=== PATIENT | female | born 1955 | race Caucasian/White ===

== ENCOUNTER 2016-10-30 18:14 | Inpatient (IN) | payer OTHER ==
[~2016-10-30] VITALS: Ht 170.2 cm; Wt 78.0 kg
[~2016-10-30 18:14] MED LIST: AMIT25TA PO; CARV6.252 PO; DIAZ5TAB PO; DILT240C9 PO; ESOM40CA PO; ESTR1PAT13 TP; EZET10TA3 PO; HYDR-3138 PO; LEVO150T5 PO; LOVA20TA2 PO; METF500T27 PO; OXYC5CAP4 PO; PENT100C2 PO; ROSU20TA PO; SERT50TA5 PO; TRAM50TA2 PO; [UNRECOGNIZED DRUG - OTHER] PO
[2016-10-30] MEDS ORDERED: HYDROmorphone 1 MG/ML, 1ML IVPush PRN (19:00)
[2016-10-30] MEDS ORDERED: ONDANSETRON 2MG/ML, 2ML IVPush ONE (19:00)
[2016-10-30] MEDS ORDERED: SODIUM CHLORIDE FLUSH 10ML SYR IVF ONE (19:00)
[2016-10-30] MEDS ORDERED: SODIUM CHLORIDE 0.9% 1,000ML IVBOLUS ONE (19:00)
[2016-10-30 19:06] LABS: BLOOD UREA NITROGEN 11 mg/dL (7-18)
[2016-10-30] MEDS ORDERED: GADOBUTROL 7.5 MMOL/7.5 ML PFS ONE (19:19)
[2016-10-30 19:38] LABS: DIFF TOTAL CELLS COUNTED 100 CELL DIFF
[2016-10-30 19:40] LABS: VERIFY COUNTS? YES
[2016-10-30] MEDS ORDERED: ONDANSETRON 2MG/ML, 2ML ONE (20:11)
[2016-10-30] MEDS ORDERED: HYDROmorphone 1 MG/ML, 1ML ONE (20:11)
[2016-10-30] MEDS ORDERED: CEFTRIAXONE 1,000 MG IV ONE (21:30)
[2016-10-30] MEDS ORDERED: CEFTRIAXONE PMX 1GM/50ML 50 ML ONE (21:44)
[2016-10-30] MEDS ORDERED: NS + 20MEQ KCL 1,000 ML IV SCH (22:11)
[2016-10-30] MEDS ORDERED: VANCOMYCIN PER PHARMACY MC PRN (22:30)
[2016-10-30] MEDS ORDERED: ACETAMINOPHEN 325 MG TABLET PO PRN (22:30)
[2016-10-30] MEDS ORDERED: ESTRADIOL 0.1 MG TP SCH (22:30)
[2016-10-30] MEDS ORDERED: DOCUSATE 100 MG CAPSULE PO PRN (22:30)
[2016-10-30] MEDS ORDERED: POLYETHYLENE GLYCOL 17 GM PACKET PO PRN (22:30)
[2016-10-30] MEDS ORDERED: ONDANSETRON 2MG/ML, 2ML IVPush PRN (22:30)
[2016-10-30] MEDS ORDERED: HYDROmorphone 2 MG/ML, 1ML IVPush PRN (22:30)
[2016-10-30] MEDS ORDERED: PHARMACOKINETIC CONSULTATION MC ONE (23:30)
[2016-10-30] MEDS ORDERED: PHARMACOKINETIC MONITORING MC PRN (23:30)
[2016-10-30] MEDS ORDERED: OMNIPAQUE 350 MG/ML, 100ML BOTTLE ONE (23:30)
[2016-10-30] MEDS: CARVEDILOL 6.25 MG TABLET PO SCH (23:31)
[2016-10-30] MEDS: ENOXAPARIN 40 MG/0.4 ML SQ SCH (23:31)
[2016-10-30] MEDS: OXYcodone IR 5MG TABLET PO PRN (23:31)
[2016-10-30] MEDS: AMITRIPTYLINE 25 MG TABLET PO SCH (23:31)
[2016-10-30 23:39] VITALS: BP 109/70
[2016-10-30] MEDS: MEROPENEM 1 GM in SODIUM CHLORIDE 0.9% 50 ML IV SCH (23:48)
[2016-10-31] MEDS ORDERED: GLUCAGON 1 MG IM PRN
[2016-10-31] MEDS ORDERED: DEXTROSE 4 GM TAB.CHEW PO PRN
[2016-10-31] MEDS ORDERED: DEXTROSE 50%, 50ML SYRINGE IVPush PRN
[2016-10-31 01:14] VITALS: BP 101/59
[2016-10-31] MEDS: VANCOMYCIN 1,500 MG in SODIUM CHLORIDE 0.9% 250 ML IV SCH ×2 (01:15→19:35)
[2016-10-31] MEDS: ZOLPIDEM 5MG TABLET PO PRN ×2 (01:27→21:36)
[2016-10-31] MEDS: OXYcodone IR 5MG TABLET PO PRN ×6 (03:29→23:38)
[2016-10-31] MEDS ORDERED: DIPHENHYDRAMINE 50 MG/ML, 1ML ONE (03:51)
[2016-10-31] MEDS ORDERED: FLUCONAZOLE 100 MG TABLET PO ONE ×2 (04:00→08:00)
[2016-10-31] MEDS ORDERED: DIPHENHYDRAMINE 50 MG/ML, 1ML IM PRN (04:00)
[2016-10-31 05:08] LABS: BLOOD UREA NITROGEN 8 mg/dL (7-18)
[2016-10-31 05:12] LABS: ASPARTATE AMINO TRANSFERASE 8 U/L (15-37)
[2016-10-31] MEDS: INSULIN ASPART 100 UNITS/ML, PEN SQ-INSULIN SCH ×5 (07:00→21:00)
[2016-10-31] MEDS: MEROPENEM 1 GM in SODIUM CHLORIDE 0.9% 50 ML IV SCH (07:39)
[2016-10-31] MEDS: PANTOPROZOLE 40MG TABLET PO SCH ×2 (07:39→21:06)
[2016-10-31] MEDS: SERTRALINE 50MG TABLET PO SCH (07:39)
[2016-10-31] MEDS: CARVEDILOL 6.25 MG TABLET PO SCH ×2 (07:39→21:06)
[2016-10-31] MEDS: EZETIMIBE 10 MG TABLET PO SCH (07:39)
[2016-10-31] MEDS: LEVOTHYROXINE 150 MCG TABLET PO SCH (07:40)
[2016-10-31] MEDS: SODIUM CHLORIDE FLUSH 10ML SYR IVF SCH ×3 (07:40→21:00)
[2016-10-31 08:02] VITALS: BP 119/73
[2016-10-31] MEDS ORDERED: PENTOSAN POLYSULFATE SODIUM 200 MG HOMEMEDPO SCH (09:00)
[2016-10-31] MEDS ORDERED: ASA/APAP/ CAFFEINE TABLET PO PRN (11:00)
[2016-10-31 13:32] VITALS: BP 101/65
[2016-10-31] MEDS: MEROPENEM 1 GM in SODIUM CHLORIDE 0.9% 100 ML IV SCH ×2 (15:11→23:18)
[2016-10-31 20:45] VITALS: BP 112/62
[2016-10-31] MEDS: PENTOSAN POLYSULFATE SODIUM 200 MG HOMEMEDPO SCH (21:00)
[2016-10-31] MEDS ORDERED: ATORVASTATIN 40 MG TABLET PO SCH (21:00)
[2016-10-31] MEDS: AMITRIPTYLINE 25 MG TABLET PO SCH (21:06)
[2016-10-31] MEDS: BISACODYL 10 MG SUPP PR PRN (21:07)
[2016-10-31] MEDS: ENOXAPARIN 40 MG/0.4 ML SQ SCH (23:21)
[2016-11-01 00:01] VITALS: BP 109/65
[2016-11-01 04:51] LABS: ASPARTATE AMINO TRANSFERASE 15 U/L (15-37); BLOOD UREA NITROGEN 9 mg/dL (7-18)
[2016-11-01] MEDS: MEROPENEM 1 GM in SODIUM CHLORIDE 0.9% 100 ML IV SCH (06:29)
[2016-11-01] MEDS: INSULIN ASPART 100 UNITS/ML, PEN SQ-INSULIN SCH (07:00)
[2016-11-01 08:14] VITALS: BP 107/69
[2016-11-01] MEDS: PENTOSAN POLYSULFATE SODIUM 200 MG HOMEMEDPO SCH (09:00)
[2016-11-01] MEDS: BISACODYL 10 MG SUPP PR PRN (09:07)
[2016-11-01] MEDS: LEVOTHYROXINE 150 MCG TABLET PO SCH (09:07)
[2016-11-01] MEDS: EZETIMIBE 10 MG TABLET PO SCH (09:07)
[2016-11-01] MEDS: CARVEDILOL 6.25 MG TABLET PO SCH (09:07)
[2016-11-01] MEDS: SERTRALINE 50MG TABLET PO SCH (09:07)
[2016-11-01] MEDS: PANTOPROZOLE 40MG TABLET PO SCH (09:07)
[2016-11-01] MEDS: SODIUM CHLORIDE FLUSH 10ML SYR IVF SCH (09:08)
[2016-11-01] MEDS: OXYcodone IR 5MG TABLET PO PRN (09:14)
== END 2016-11-01 11:15 | disposition home or self-care (01) | DRG 866 ==
LOC: ED 21:10 → EDIP 21:11 → ED 21:18 → 3NW 22:56
PROVIDERS: ATTEND Family Medicine
DX: B34.9 Viral infection, unspecified (principal); M54.5 Low back pain; G89.29 Other chronic pain; E11.9 Type 2 diabetes mellitus without complications; E03.9 Hypothyroidism, unspecified; E78.5 Hyperlipidemia, unspecified; Z96.643 Presence of artificial hip joint, bilateral; Z90.710 Acquired absence of both cervix and uterus; Z90.49 Acquired absence of other specified parts of digestive tract; Z79.890 Hormone replacement therapy; K21.9 Gastro-esophageal reflux disease without esophagitis; I11.9 Hypertensive heart disease without heart failure; Z88.1 Allergy status to other antibiotic agents; Z79.891 Long term (current) use of opiate analgesic; N95.9 Unspecified menopausal and perimenopausal disorder
CPT/HCPCS: 36415; 71010; 72158; 74177; 80048; 80053; 81003; 82040; 82962; 83605; 84145; 85025; 85651; 86140; 87040; 93306; 96374; 96375; A9585; J0696; J1170; J1650; J2185; J2405; J3370; J3480; Q9967; J1200; J7030; J7050

== ENCOUNTER → 2017-01-02 | Outpatient (CLI) | payer OTHER ==
[~2017-01-02] MED LIST changes: +CHOL400C11 PO; +CIPR500T3 PO; +FISH12002 PO; +HYDR-3240 PO; +UBID1CAP3 PO; +VITA1CAP PO
[2017-01-02 11:15] LABS: BLOOD UREA NITROGEN 11 mg/dL (7-18)
[2017-01-02 11:17] LABS: ASPARTATE AMINO TRANSFERASE 14 U/L (15-37)
== END | disposition home or self-care (01) ==
LOC: STAR 09:51
PROVIDERS: ATTEND Orthopaedic Surgery
DX: Z01.818 Encounter for other preprocedural examination (principal); R94.31 Abnormal electrocardiogram [ECG] [EKG]; M70.62 Trochanteric bursitis, left hip
CPT/HCPCS: 36415; 80053; 93005

== ENCOUNTER 2017-01-06 11:38 | Day surgery (SDC) | payer OTHER ==
[2017-01-02 10:12] VITALS: BP 136/88
[~2017-01-06] VITALS: Ht 170.2 cm; Wt 77.2 kg
[2017-01-06] MEDS ORDERED: LACTATED RINGERS 1,000 ML IV SCH (11:48)
[2017-01-06 12:09] VITALS: BP 136/88
[2017-01-06] MEDS ORDERED: MIDAZOLAM 1 MG/ML, 2ML ONE (13:59)
[2017-01-06] MEDS ORDERED: BUPIVACAINE/PF 0.25% ONE (15:03)
[2017-01-06] MEDS ORDERED: methylPREDNISolone *ACETATE* 40 MG/ML ONE (15:03)
[2017-01-06] MEDS ORDERED: ONDANSETRON 2MG/ML, 2ML ONE (15:08)
[2017-01-06] MEDS ORDERED: CEFAZOLIN 1,000 MG ONE (15:08)
[2017-01-06] MEDS ORDERED: PROPOFOL 10 MG/ML, 20ML ONE (15:08)
[2017-01-06] MEDS ORDERED: OXYcodone/APAP 5/325MG TABLET PO PRN (15:30)
[2017-01-06] MEDS ORDERED: KETOROLAC 30 MG/1 ML IVPush SCH (15:30)
[2017-01-06] MEDS ORDERED: ONDANSETRON 2MG/ML, 2ML IVPush PRN (15:30)
[2017-01-06] MEDS ORDERED: PROMETHAZINE 25 MG/ML, 1ML IM PRN (15:30)
[2017-01-06] MEDS ORDERED: OXYcodone 5 MG/5 ML ORAL.SOL UDC ONE (15:55)
[2017-01-06] MEDS ORDERED: ACETAMINOPHEN 650 MG/20.3 ML UDC ONE (15:55)
== END 2017-01-06 16:45 | disposition home or self-care (01) ==
LOC: OUT 11:38
PROVIDERS: ATTEND Orthopaedic Surgery
DX: M76.12 Psoas tendinitis, left hip (principal); I10 Essential (primary) hypertension; I25.10 Atherosclerotic heart disease of native coronary artery without angina pectoris; E11.9 Type 2 diabetes mellitus without complications; K21.9 Gastro-esophageal reflux disease without esophagitis; E03.9 Hypothyroidism, unspecified; Z79.899 Other long term (current) drug therapy; Z96.642 Presence of left artificial hip joint; Z88.8 Allergy status to other drugs, medicaments and biological substances
CPT/HCPCS: 20551; 73501; 76000; 82962; J0690; J1030; J2250; J2405; J2704; J3490; J7120

== ENCOUNTER → 2017-02-07 | Outpatient (CLI) | payer OTHER ==
[~2017-02-07] MED LIST changes: +EZET10TA18 PO; -EZET10TA3 PO; -HYDR-3138 PO; +HYDR-3237 PO; +OXYC5CAP2 PO; -OXYC5CAP4 PO
== END | disposition home or self-care (01) ==
LOC: CFH 09:22
PROVIDERS: ATTEND Internal Medicine Cardiovascular Disease
DX: I08.0 Rheumatic disorders of both mitral and aortic valves (principal); I25.10 Atherosclerotic heart disease of native coronary artery without angina pectoris; N64.4 Mastodynia; I10 Essential (primary) hypertension; T14.90 Injury, unspecified; X58.XXXA Exposure to other specified factors, initial encounter; Y93.89 Activity, other specified; Y92.89 Other specified places as the place of occurrence of the external cause; Y99.8 Other external cause status
CPT/HCPCS: 76641; 78452; 93017; 93306; A9502; G0206

== ENCOUNTER → 2017-03-06 | Outpatient (CLI) | payer OTHER | LOC: ROC 07:57 | PROVIDERS: ATTEND Radiology Radiation Oncology | DX: D32.0 Benign neoplasm of cerebral meninges (principal); E11.9 Type 2 diabetes mellitus without complications; E03.9 Hypothyroidism, unspecified; I10 Essential (primary) hypertension | CPT/HCPCS: 99214; G0463 ==

== ENCOUNTER → 2017-03-26 | Outpatient (CLI) | payer OTHER ==
[~2017-03-26] MED LIST changes: +CELE200C PO
[2017-03-26 12:03] LABS: BLOOD UREA NITROGEN 7 mg/dL (7-18)
[2017-03-26 12:07] LABS: ASPARTATE AMINO TRANSFERASE 14 U/L (15-37)
== END | disposition home or self-care (01) ==
LOC: STAR 10:35
PROVIDERS: ATTEND Orthopaedic Surgery
DX: Z01.818 Encounter for other preprocedural examination (principal); M70.72 Other bursitis of hip, left hip; E11.9 Type 2 diabetes mellitus without complications; K21.9 Gastro-esophageal reflux disease without esophagitis
CPT/HCPCS: 36415; 80053; 93005

== ENCOUNTER 2017-04-01 05:36 | Day surgery (SDC) | payer OTHER ==
[2017-03-26 11:25] VITALS: BP 130/86
[~2017-04-01] VITALS: Ht 170.2 cm; Wt 79.4 kg
[2017-04-01] MEDS ORDERED: LIDOCAINE 1%, 2ML ONE (05:57)
[2017-04-01] MEDS ORDERED: LACTATED RINGERS 1,000 ML IV SCH (05:58)
[2017-04-01] MEDS ORDERED: LIDOCAINE 1%, 2ML SQ PRN (06:00)
[2017-04-01] MEDS ORDERED: EPINEPHRINE TOPICAL SOLN 1 MG/ML, 30ML ONE (06:07)
[2017-04-01] MEDS ORDERED: ROPIvacaine/PF 0.5%, 30 ML ONE (06:08)
[2017-04-01] MEDS ORDERED: FENTANYL PF 100 MCG/2ML ONE ×3 (06:40→07:45)
[2017-04-01] MEDS ORDERED: MIDAZOLAM 1 MG/ML, 2ML ONE (06:40)
[2017-04-01] MEDS ORDERED: DEXAMETHASONE 4 MG/ML, 1ML ONE (07:05)
[2017-04-01] MEDS ORDERED: ONDANSETRON 2MG/ML, 2ML ONE (07:05)
[2017-04-01] MEDS ORDERED: CEFAZOLIN 1,000 MG ONE (07:05)
[2017-04-01] MEDS ORDERED: PROPOFOL 10 MG/ML, 20ML ONE (07:05)
[2017-04-01] MEDS ORDERED: LIDOCAINE-MPF 2% ,5ML ONE (07:06)
[2017-04-01] MEDS ORDERED: LORazepam 2 MG/ML, 1ML IVPush PRN (07:30)
[2017-04-01] MEDS ORDERED: ONDANSETRON 2MG/ML, 2ML IVPush PRN (07:30)
[2017-04-01] MEDS ORDERED: LABETALOL 5MG/ML, 20ML IV PRN (07:30)
[2017-04-01] MEDS ORDERED: OXYcodone 5 MG/5 ML ORAL.SOL UDC PO PRN (07:30)
[2017-04-01] MEDS ORDERED: METOCLOPRAMIDE 5 MG/ML, 2ML IV PRN (07:30)
[2017-04-01] MEDS ORDERED: MEPERIDINE/PF 25MG/0.5ML IVPush PRN (07:30)
[2017-04-01] MEDS ORDERED: DIAZEPAM 5 MG/ML, 2ML IVPush PRN (07:30)
[2017-04-01] MEDS ORDERED: ALBUTEROL/IPRATROPIUM 2.5MG/0.5MG, 3 ML NPPB PRN (07:30)
[2017-04-01] MEDS ORDERED: MIDAZOLAM 1 MG/ML, 2ML IV PRN (07:30)
[2017-04-01] MEDS ORDERED: hydrALAzine 20 MG/ML, 1ML IV PRN (07:30)
[2017-04-01] MEDS ORDERED: PROMETHAZINE 25 MG/ML, 1ML IV PRN (07:30)
[2017-04-01] MEDS ORDERED: ACETAMINOPHEN 325 MG TABLET PO PRN (07:30)
[2017-04-01] MEDS ORDERED: ACETAMINOPHEN 650 MG/20.3 ML UDC ONE (07:44)
[2017-04-01] MEDS ORDERED: OXYcodone 5 MG/5 ML ORAL.SOL UDC ONE (07:45)
[2017-04-01] MEDS: FENTANYL PF 100 MCG/2ML IV PRN ×2 (07:46→07:55)
[2017-04-01] MEDS ORDERED: HYDROmorphone 2 MG/ML, 1ML ONE (07:56)
[2017-04-01] MEDS: HYDROmorphone 1 MG/ML, 1ML IV PRN ×2 (08:00→08:08)
[2017-04-01] MEDS ORDERED: KETOROLAC 30 MG/1 ML ONE (08:02)
[2017-04-01] MEDS ORDERED: KETOROLAC 30 MG/1 ML IVPush ONE (08:30)
== END 2017-04-01 10:10 ==
LOC: OUT 05:36
PROVIDERS: ATTEND Orthopaedic Surgery
DX: M25.852 Other specified joint disorders, left hip (principal); Z96.642 Presence of left artificial hip joint; Z88.8 Allergy status to other drugs, medicaments and biological substances; I10 Essential (primary) hypertension; I25.10 Atherosclerotic heart disease of native coronary artery without angina pectoris; E03.9 Hypothyroidism, unspecified; E78.5 Hyperlipidemia, unspecified; E11.9 Type 2 diabetes mellitus without complications; Z87.39 Personal history of other diseases of the musculoskeletal system and connective tissue
CPT/HCPCS: 29862; 73501; 76000; 82962; J0690; J1100; J1170; J1885; J2250; J2405; J2704; J2795; J3010; J3490; J7120

== ENCOUNTER → 2017-06-03 | Outpatient (CLI) | payer OTHER | END | disposition home or self-care (01) | LOC: CFH 12:46 | PROVIDERS: ATTEND Obstetrics & Gynecology Female Pelvic Medicine and Reconstructive Surgery | DX: R92.1 Mammographic calcification found on diagnostic imaging of breast (principal); Z98.82 Breast implant status | CPT/HCPCS: 76641; G0206 ==

== ENCOUNTER → 2017-06-26 | Outpatient (CLI) | payer OTHER | LOC: ROC 08:06 | PROVIDERS: ATTEND Radiology Radiation Oncology | DX: C70.0 Malignant neoplasm of cerebral meninges (principal) | CPT/HCPCS: 99213; G0463 ==

== ENCOUNTER → 2017-07-10 | Outpatient (CLI) | payer OTHER | END | disposition home or self-care (01) | LOC: CFH 08:11 | PROVIDERS: ATTEND Psychiatry & Neurology Neurology | DX: M50.223 Other cervical disc displacement at C6-C7 level (principal); Z98.890 Other specified postprocedural states | CPT/HCPCS: 72141 ==

== ENCOUNTER → 2017-09-17 | Outpatient (CLI) | payer OTHER | LOC: CFH 16:12 | PROVIDERS: ATTEND Family Medicine | DX: R79.9 Abnormal finding of blood chemistry, unspecified (principal) | CPT/HCPCS: 76536 ==

== ENCOUNTER → 2017-10-20 | Outpatient (CLI) | payer OTHER | LOC: CFH 16:27 | PROVIDERS: ATTEND Anesthesiology | DX: M47.812 Spondylosis without myelopathy or radiculopathy, cervical region (principal); Z98.1 Arthrodesis status | CPT/HCPCS: 72050 ==

== ENCOUNTER → 2018-06-17 | Outpatient (CLI) | payer OTHER | END | disposition home or self-care (01) | LOC: ROC 08:18 | PROVIDERS: ATTEND Radiology Radiation Oncology | DX: D32.0 Benign neoplasm of cerebral meninges (principal) | CPT/HCPCS: 99213; G0463 ==

== ENCOUNTER 2019-04-08 07:09 | Outpatient (CLI) | payer OTHER ==
[~2019-04-08 07:09] MED LIST changes: -EZET10TA18 PO; +EZET10TA70 PO; -ROSU20TA PO; +ROSU20TA2 PO; +SERT50TA28 PO; -SERT50TA5 PO
== END 2019-04-08 23:59 | disposition home or self-care (01) ==
LOC: CFH 07:09
PROVIDERS: ATTEND Surgery
DX: R10.814 Left lower quadrant abdominal tenderness (principal); Z98.84 Bariatric surgery status
CPT/HCPCS: 76700

== ENCOUNTER 2019-06-10 15:30 | Outpatient (CLI) | payer OTHER | END 2019-06-10 23:59 | disposition home or self-care (01) | LOC: ROC 15:30 | PROVIDERS: ATTEND Radiology Radiation Oncology | DX: D32.0 Benign neoplasm of cerebral meninges (principal) | CPT/HCPCS: 99213; G0463 ==

== ENCOUNTER → 2019-08-11 | Outpatient (CLI) | payer OTHER ==
[~2019-08-11] MED LIST changes: +DILT240C47 PO; -DILT240C9 PO
== END | disposition home or self-care (01) ==
LOC: ROC 06-10 07:27 → EDSTATUS 06-10 11:29 → ROC 07:35
PROVIDERS: ATTEND Radiology Radiation Oncology
DX: D32.0 Benign neoplasm of cerebral meninges (principal); Z88.8 Allergy status to other drugs, medicaments and biological substances
CPT/HCPCS: 99213; G0463

== ENCOUNTER 2020-03-09 19:12 | Emergency (ER) | payer OTHER ==
[~2020-03-09] VITALS: Ht 170.2 cm; Wt 92.8 kg
--- NOTE | 2020-03-09 19:24 | NUR ---
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
--- NOTE | 2020-03-09 19:37 | NUR ---
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 PT CONNECTED TO MONITORING VSS NADN. CALL LIGHT IN REACH.
[2020-03-09] MEDS ORDERED: KETOROLAC 30 MG/1 ML IM ONE (20:00)
[2020-03-09] MEDS ORDERED: OXYcodone/APAP 10/325MG TABLET PO ONE (20:00)
[2020-03-09] MEDS ORDERED: OXYcodone/APAP 10/325MG TABLET ONE (20:09)
[2020-03-09] MEDS ORDERED: KETOROLAC 30 MG/1 ML ONE (20:09)
--- NOTE | 2020-03-09 20:25 | NUR ---
PT MEDICATED PER MAR, PT REQ MRI PROVIDER TO BE UPDATED
--- NOTE | 2020-03-09 21:01 | NUR ---
REPORT TO MICHELLE BARBA CARE TRANSFERED AT THIS TIME
[2020-03-09 21:09] LABS: BASOPHILS # (AUTO) 0.06 x10^3/uL (0-0.1); BASOPHILS % (AUTO) 1 % (0-1); EOSINOPHILS # (AUTO) 0.46 x10^3/uL (0-0.4); EOSINOPHILS % (AUTO) 4 % (1-7); LYMPHOCYTES # (AUTO) 3.52 x10^3/uL (1-3.4); LYMPHOCYTES % (AUTO) 29 % (22-44); MD NO; MEAN CORPUSCULAR HEMOGLOBIN 29.3 pg (27.0-34.8); MEAN CORPUSCULAR HGB CONC 32.6 g/dL (32.4-35.8); MEAN PLATELET VOLUME 7.6 fL (7.4-10.4); MONOCYTES # (AUTO) 0.49 x10^3/uL (0.2-0.8); MONOCYTES % (AUTO) 4 % (2-9); NEUTROPHILS # (AUTO) 7.53 x10^3/uL (1.8-6.8); NEUTROPHILS % (AUTO) 63 % (42-75); PLATELET COUNT 424 x10^3/uL (130-400); RED BLOOD COUNT 4.68 x10^6/uL (3.82-5.3); RED CELL DISTRIBUTION WIDTH 13.9 % (9.6-15.2)
--- NOTE | 2020-03-09 21:12 | NUR ---
CT PENDING CREATINE.
[2020-03-09 21:22] LABS: ALBUMIN 3.6 g/dL (3.4-5.0); ANION GAP 12 mmol/L (5-15); CALCIUM 8.6 mg/dL (8.5-10.1); CHLORIDE 108 mmol/L (98-107); CREATININE 0.74 mg/dL (0.55-1.02)
--- NOTE | 2020-03-09 22:05 | NUR ---
pt back from ct. ambualtory to restroom c steady gait.
[2020-03-09 22:11] VITALS: BP 153/73
[2020-03-09] MEDS ORDERED: OMNIPAQUE 350 MG/ML, 75ML BOTTLE ONE (22:47)
== END 2020-03-09 23:41 | disposition home or self-care (01) ==
LOC: ED 20:07
DX: N64.4 Mastodynia (principal); I25.10 Atherosclerotic heart disease of native coronary artery without angina pectoris; R00.0 Tachycardia, unspecified; R50.9 Fever, unspecified; I10 Essential (primary) hypertension; E11.9 Type 2 diabetes mellitus without complications; Z90.710 Acquired absence of both cervix and uterus; Z90.89 Acquired absence of other organs; Z90.49 Acquired absence of other specified parts of digestive tract
CPT/HCPCS: 36415; 71045; 71260; 80048; 82040; 85025; 93005; 96372; 99285; J1885; Q9967

== ENCOUNTER 2020-07-13 08:27 | Outpatient (CLI) | payer MEDICARE, OTHER ==
[~2020-07-13 08:27] MED LIST changes: -CIPR500T3 PO; +CIPR500T4 PO; +DILT-88 PO; -DILT240C47 PO; +HYDR-1067 PO; -HYDR-3240 PO
== END 2020-07-13 23:59 | disposition home or self-care (01) ==
LOC: ROC 08:27
PROVIDERS: ATTEND Radiology Radiation Oncology
DX: Z08 Encounter for follow-up examination after completed treatment for malignant neoplasm (principal); D32.0 Benign neoplasm of cerebral meninges
CPT/HCPCS: G2012; G2251

== ENCOUNTER 2020-12-27 13:01 | Outpatient (CLI) | payer MEDICARE ==
[~2020-12-27 13:01] MED LIST changes: -HYDR-1067 PO; +HYDR-2214 PO
[2021-01-23] MEDS ORDERED: ALPR1TAB2 PO (15:06)
[2021-01-26] MEDS ORDERED: ALPR1TAB2 PO (11:32)
== END 2020-12-27 23:59 | disposition home or self-care (01) ==
LOC: CFH 13:01
PROVIDERS: ATTEND Plastic Surgery
DX: Z02.9 Encounter for administrative examinations, unspecified (principal)

== ENCOUNTER → 2021-01-05 | Outpatient (CLI) | payer MEDICARE | END | disposition home or self-care (01) | LOC: CFH 09:14 | PROVIDERS: ATTEND Surgery | DX: K76.0 Fatty (change of) liver, not elsewhere classified (principal) | CPT/HCPCS: 76700 ==

== ENCOUNTER → 2021-01-31 | Outpatient (CLI) | payer MEDICARE ==
[~2021-01-31] MED LIST changes: +ALPR1TAB2 PO; +GADOTERATE 10 MMOL/20ML SYR ONE
== END | disposition home or self-care (01) ==
LOC: CFH 07:06
PROVIDERS: ATTEND Plastic Surgery
DX: N64.59 Other signs and symptoms in breast (principal)
CPT/HCPCS: 77049; A9575; C8908

== ENCOUNTER → 2021-02-06 | Outpatient (CLI) | payer MEDICARE ==
[~2021-02-06] MED LIST changes: -GADOTERATE 10 MMOL/20ML SYR ONE; +OMNIPAQUE 350 MG/ML, 100ML BOTTLE ONE
== END | disposition home or self-care (01) ==
LOC: CFH 13:10
PROVIDERS: ATTEND Surgery
DX: K76.0 Fatty (change of) liver, not elsewhere classified (principal); K44.9 Diaphragmatic hernia without obstruction or gangrene; I70.0 Atherosclerosis of aorta; R10.13 Epigastric pain; R10.32 Left lower quadrant pain; R10.30 Lower abdominal pain, unspecified
CPT/HCPCS: 74177; Q9967

== ENCOUNTER 2021-02-24 07:40 | Outpatient (CLI) | payer MEDICARE ==
[~2021-02-24 07:40] MED LIST changes: -OMNIPAQUE 350 MG/ML, 100ML BOTTLE ONE
[2021-02-24 08:26] LABS: ALANINE AMINOTRANSFERASE 51 U/L (12-78); ALBUMIN 3.6 g/dL (3.4-5.0); ANION GAP 6 mmol/L (5-15); CHLORIDE 102 mmol/L (98-107)
[2021-02-24 08:35] LABS: ALKALINE PHOSPHATASE 68 U/L (45-117); CHOL/HDL RATIO 2.2; CHOLESTEROL, TOTAL 111 mg/dL (140-239); CREATININE 0.63 mg/dL (0.55-1.02); HDL CHOL % 45 % (28-40); HDL CHOLESTEROL (DIRECT) 50 mg/dL (40-60); LDL CHOLESTEROL,CALCULATED 37 mg/dL (54-169); LDL/HDL RATIO 0.7 (0.5-3.0); TOTAL PROTEIN 7.2 g/dL (6.4-8.2); TRIGLYCERIDES 120 mg/dL (50-200); VLDL CHOLESTEROL 24 mg/dL (0-25)
[2021-02-24 08:38] LABS: BASOPHILS % (AUTO) 0 % (0-1); EOSINOPHILS % (AUTO) 4 % (1-7); LYMPHOCYTES % (AUTO) 31 % (22-44); MEAN CORPUSCULAR HEMOGLOBIN 29.5 pg (27.0-34.8); MEAN CORPUSCULAR HGB CONC 33.9 g/dL (32.4-35.8); MEAN PLATELET VOLUME 7.8 fL (7.4-10.4); MONOCYTES % (AUTO) 5 % (2-9); NEUTROPHILS % (AUTO) 60 % (42-75); PLATELET COUNT 385 x10^3/uL (130-400); RED BLOOD COUNT 4.64 x10^6/uL (3.82-5.3); RED CELL DISTRIBUTION WIDTH 14.5 % (9.6-15.2)
== END 2021-02-24 23:59 | disposition home or self-care (01) ==
LOC: LAB 07:40
PROVIDERS: ATTEND Family Medicine
DX: E11.9 Type 2 diabetes mellitus without complications (principal); D64.9 Anemia, unspecified; E78.5 Hyperlipidemia, unspecified; E55.9 Vitamin D deficiency, unspecified; E03.9 Hypothyroidism, unspecified; E06.3 Autoimmune thyroiditis; E23.7 Disorder of pituitary gland, unspecified; E16.1 Other hypoglycemia; R79.82 Elevated C-reactive protein (CRP); N95.1 Menopausal and female climacteric states; R62.7 Adult failure to thrive
CPT/HCPCS: 36415; 80053; 80061; 82306; 82627; 82670; 82679; 83036; 83525; 84140; 84144; 84305; 84402; 84403; 84443; 84481; 84482; 85025; 86141; 86376; 86800